=== PATIENT | female | born 1990 | race Two or more races ===

== ENCOUNTER 2022-11-16 18:51 | Emergency (ER) | payer MEDICAID, OTHER ==
[~2022-11-16] VITALS: Ht 152.4 cm; Wt 66.2 kg
[2022-11-16 18:59] VITALS: BP 114/72
== END 2022-11-16 20:31 | disposition left against medical advice (07) ==
LOC: ER 18:51
DX: R21 Rash and other nonspecific skin eruption (principal); Z53.21 Procedure and treatment not carried out due to patient leaving prior to being seen by health care provider